=== PATIENT | female | born 1950 | race Caucasian/White ===

== ENCOUNTER → 2016-07-21 | Outpatient (CLI) | payer MEDICARE, BC | END | disposition home or self-care (01) | LOC: EDSTATUS 08:27 → PT 08:54 ==

== ENCOUNTER 2016-08-26 13:52 | Outpatient (RCR) | payer MEDICARE, BC | END 2016-11-24 | disposition home or self-care (01) | LOC: PT | DX: Z47.89 Encounter for other orthopedic aftercare (principal) ==

== ENCOUNTER → 2017-05-18 | Outpatient (CLI) | payer MEDICARE, BC | LOC: MAMMO 09:49 | DX: Z12.31 Encounter for screening mammogram for malignant neoplasm of breast (principal) | CPT/HCPCS: G0202 ==

== ENCOUNTER 2017-07-09 12:00 | Emergency (ER) | payer MEDICARE, BC ==
[~2017-07-09] VITALS: Ht 170.2 cm; Wt 107.3 kg
[2017-07-09] MEDS ORDERED: HYDROCHLOROTHIA1 T14 PO (12:13)
[2017-07-09] MEDS ORDERED: PLAQUENIL 200M200 MG PO (12:14)
[2017-07-09] MEDS ORDERED: LEVOTHYROXINE0.15 MG PO (12:14)
[2017-07-09 12:57] VITALS: BP 136/74
== END 2017-07-09 13:00 | disposition home or self-care (01) ==
LOC: ED 12:00
DX: S60.222A Contusion of left hand, initial encounter (principal); S60.512A Abrasion of left hand, initial encounter; W22.8XXA Striking against or struck by other objects, initial encounter; Y92.008 Other place in unspecified non-institutional (private) residence as the place of occurrence of the external cause; M06.9 Rheumatoid arthritis, unspecified; I10 Essential (primary) hypertension; E03.9 Hypothyroidism, unspecified

== ENCOUNTER → 2017-10-25 | Outpatient (CLI) | payer MEDICARE, BC ==
[~2017-10-25] MED LIST: HYDROCHLOROTHIA1 T14 PO; LEVOTHYROXINE0.15 MG PO; PLAQUENIL 200M200 MG PO
== END ==
LOC: MAMMO 15:48 → RAD 16:00 → MAMMO 16:00
DX: Z13.820 Encounter for screening for osteoporosis (principal); M85.88 Other specified disorders of bone density and structure, other site; Z00.00 Encounter for general adult medical examination without abnormal findings; Z13.21 Encounter for screening for nutritional disorder; E03.9 Hypothyroidism, unspecified; Z78.0 Asymptomatic menopausal state; M51.34 Other intervertebral disc degeneration, thoracic region; Z79.899 Other long term (current) drug therapy

== ENCOUNTER → 2019-08-28 | Outpatient (CLI) | payer MEDICARE, BC | LOC: MAMMO 15:15 | DX: Z12.31 Encounter for screening mammogram for malignant neoplasm of breast (principal) ==

== ENCOUNTER → 2020-05-06 | Outpatient (CLI) | payer MEDICARE, BC | LOC: MAMMO 09:07 | DX: Z13.820 Encounter for screening for osteoporosis (principal); M85.851 Other specified disorders of bone density and structure, right thigh ==

== ENCOUNTER → 2021-03-30 | Outpatient (CLI) | payer MEDICARE, BC | LOC: RAD 08:19 | DX: M25.462 Effusion, left knee (principal); M71.22 Synovial cyst of popliteal space [Baker], left knee; M23.322 Other meniscus derangements, posterior horn of medial meniscus, left knee; M22.42 Chondromalacia patellae, left knee ==

== ENCOUNTER 2021-11-04 10:59 | Outpatient (RCR) | payer MEDICARE, BC | END 2021-11-30 | disposition still patient (30) | LOC: OT | DX: G54.0 Brachial plexus disorders (principal); M48.02 Spinal stenosis, cervical region; G56.22 Lesion of ulnar nerve, left upper limb ==

== ENCOUNTER 2021-12-07 14:30 | Outpatient (RCR) | payer MEDICARE, BC | END 2021-12-30 | disposition still patient (30) | LOC: OT | DX: M48.02 Spinal stenosis, cervical region (principal); G56.22 Lesion of ulnar nerve, left upper limb; G54.0 Brachial plexus disorders ==

== ENCOUNTER → 2021-12-22 | Outpatient (CLI) | payer MEDICARE, BC | LOC: MAMMO 14:30 | DX: Z12.31 Encounter for screening mammogram for malignant neoplasm of breast (principal) ==

== ENCOUNTER 2022-01-05 14:00 | Outpatient (RCR) | payer MEDICARE, BC | END 2022-01-21 09:39 | disposition home or self-care (01) | LOC: OT 14:00 | DX: G54.0 Brachial plexus disorders (principal); G56.22 Lesion of ulnar nerve, left upper limb; M48.02 Spinal stenosis, cervical region ==

== ENCOUNTER 2023-08-08 02:28 | Emergency (ER) | payer MEDICARE, BC ==
[~2023-08-08] VITALS: Ht 170.2 cm; Wt 106.4 kg
[~2023-08-08 02:28] MED LIST changes: +ANTIVERT12.5 M1 PO; +MACROBID 100 M100 MG PO
[2023-08-08] MEDS ORDERED: EPIDIOLEX100 MG/1 M (03:01)
[2023-08-08] MEDS ORDERED: Ketorolac 30 MG/ML VIAL IM ONE (03:45)
[2023-08-08 04:02] VITALS: BP 125/57
== END 2023-08-08 04:05 | disposition home or self-care (01) ==
LOC: ED 02:28
DX: S83.91XA Sprain of unspecified site of right knee, initial encounter (principal); M54.31 Sciatica, right side; F17.210 Nicotine dependence, cigarettes, uncomplicated; X50.1XXA Overexertion from prolonged static or awkward postures, initial encounter
CPT/HCPCS: J1885